=== PATIENT | female | born 1945 | race Caucasian/White ===

== ENCOUNTER 2024-08-07 14:00 | Outpatient (RCR) | payer MEDICARE, BC, SELFPAY | END 2024-09-10 16:55 | disposition home or self-care (01) | LOC: PT 14:00 | PROVIDERS: Visit Provider Family Medicine | DX: M54.31 Sciatica, right side (principal) | CPT/HCPCS: 97014; 97110; 97140; 97163; G0283 ==

== ENCOUNTER 2024-11-26 10:00 | Outpatient (RCR) | payer MEDICARE, BC, SELFPAY | END 2024-11-26 23:59 | disposition home or self-care (01) | LOC: PT 10:00 | PROVIDERS: Visit Provider Neurological Surgery | DX: M51.16 Intervertebral disc disorders with radiculopathy, lumbar region (principal) | CPT/HCPCS: 97110; 97163 ==